=== PATIENT | male | born 1955 | race Two or more races ===

== ENCOUNTER 2022-01-05 20:35 | Emergency (ER) | payer MEDICARE, OTHER ==
[~2022-01-05] VITALS: Ht 180.3 cm; Wt 86.2 kg
[2022-01-05] MEDS ORDERED: HYDROcodone-ACET 10/325MG TAB PO ONE (21:45)
[2022-01-05 22:42] LABS: Urine Bacteria NONE SEEN /hpf (None Seen); Urine Blood 3+ /uL (Negative); Urine Specific Gravity 1.019 (1.001-1.035); Urine WBC 15 /hpf (0 - 3)
[2022-01-05] MEDS ORDERED: SULF400T11 PO (23:08)
[2022-01-05] MEDS ORDERED: cefTRIAXone 1GM/50ML D5W 50 ML IV ONE (23:15)
[2022-01-06 00:30] VITALS: BP 110/69
== END 2022-01-06 00:31 | disposition home or self-care (01) ==
LOC: ER 20:35
DX: N39.0 Urinary tract infection, site not specified (principal); R94.31 Abnormal electrocardiogram [ECG] [EKG]
CPT/HCPCS: 74176; 81001; 93005; 96365; 99285; J0696

== ENCOUNTER 2022-02-15 08:58 | Emergency (ER) | payer MEDICARE, MEDICAID ==
[~2022-02-15] VITALS: Ht 180.3 cm; Wt 88.6 kg
[~2022-02-15 08:58] MED LIST: SULF400T11 PO
[2022-02-15 09:08] VITALS: BP 156/74
[2022-02-15] MEDS ORDERED: PROCHLORPERAZINE EDISYLATE 5 MG/ML 2ML VIAL IV ONE (10:45)
[2022-02-15] MEDS ORDERED: SODIUM CHLORIDE 0.9% 1,000 ML IVB ONE (10:45)
[2022-02-15] MEDS ORDERED: PANTOPRAZOLE 40 MG TAB PO ONE (10:45)
[2022-02-15 11:46] LABS: Albumin 4.4 g/dL (3.4-5.0); Calcium 9.5 mg/dL (8.5-10.1); Magnesium 2.2 mg/dL (1.6-2.6); Potassium 4.1 mmol/L (3.5-5.1)
[2022-02-15 11:48] LABS: BUN/Creatinine Ratio 14.8
[2022-02-15 11:51] LABS: Bilirubin, Total 0.8 mg/dL (0.2-1.0); Total Protein 8.7 g/dL (6.4-8.2)
[2022-02-15 11:55] LABS: Basophils # (auto) 0 10 ^3/uL (0-0.2); Basophils % (auto) 0.4 % (0.0-2.0); Eosinophils # (auto) 0 10 ^3/uL (0-0.8); Eosinophils % (auto) 0.3 % (0.0-7.0); Hematocrit 43.6 % (41.0-53.0); Hemoglobin 14.9 g/dL (13.5-17.5); Lymphocytes # (auto) 0.8 10 ^3/uL (0.4-5.4); Lymphocytes % (auto) 18.5 % (10.0-50.0); Mean Corpuscular Hemoglobin 33.4 pg (28.0-32.0); Mean Corpuscular Hgb Conc. 34.2 g/dL (32.0-36.0); Mean Corpuscular Volume 97.8 fL (80.0-100.0); Monocytes # (auto) 0.7 10 ^3/uL (0-1.3); Monocytes % (auto) 15.7 % (0.0-12.0); Neutrophils # (auto) 2.9 10 ^3/uL (1.6-8.6); Neutrophils % (auto) 65.1 % (37.0-80.0); Nucleated Red Blood Cells % 0.2 %; Red Blood Cells 4.46 10^6/uL (4.5-5.90); Red Cell Distribution Width 13.3 % (11.8-14.3); White Blood Cell 4.4 10^3/uL (4.4-10.8)
== END 2022-02-15 22:00 | disposition home or self-care (01) ==
LOC: ER 08:58
DX: R10.84 Generalized abdominal pain (principal); F11.23 Opioid dependence with withdrawal; Z79.899 Other long term (current) drug therapy
CPT/HCPCS: 36415; 80053; 83690; 83735; 85025; 93005